=== PATIENT | male | born 1960 | race Caucasian/White ===

== ENCOUNTER 2022-01-26 20:10 | Inpatient (IN) | payer BC ==
[2022-01-26] MEDS ORDERED: ONDANSETRON 4 MG/2 ML VIAL IVP STA (22:31)
[2022-01-26] MEDS ORDERED: SODIUM CHLORIDE 0.9% 1,000 ML IV STA ×2 (22:31)
[2022-01-26] MEDS ORDERED: MORPHINE SULFATE 4 MG/ML SYRINGE IV STA (22:31)
[2022-01-26] MEDS ORDERED: NALOXONE 0.4 MG/ML 1 ML VIAL IV PRN (22:31)
[2022-01-26] MEDS ORDERED: MORPHINE SULFATE 4 MG/ML SYRINGE IVP STA (22:31)
[2022-01-26] MEDS ORDERED: ARTIFICIAL TEARS-HYPROMELLOSE DROPS 15 ML BTL RIGHT EYE PRN (22:31)
[2022-01-26] MEDS ORDERED: DEXAMETHASONE SOD PHOSPHATE 10 MG/ML 1 ML VIAL IVP STA (22:31)
--- NOTE | 2022-01-26 22:47 | ED ---
Eye Problem HPI - General Chief complaint: Skin/Abscess/Foreign Body Stated complaint: shingles Time Seen by Provider: 01/26/22 21:55 Source: patient, family, RN notes reviewed, old records reviewed Mode of arrival: ambulatory Limitations: no limitations - History of Present Illness Initial comments: This is a 61-year-old male to the emergency department for evaluation patient Dese for evaluation regards to prior diagnosis of herpes zoster ophthalmicus. Patient sent in for treatment. Patient is having severe pain of the right eye which is been going on for 4 days. Pain is severe eyes become significantly swollen he believes it all started when he had a scratch to his eye from a tree will use climbing. Patient has no significant medical history otherwise no other complaints MD chief complaint: eye pain, eye redness, other (Right eye rash) -: days(s) (7) Location: right eye Place: home If Injury: direct trauma Eye Symptoms: burning, redness, pain, discharge Severity: severe Severity scale (1-10): 10 If Pain, Quality: sharp, burning Consistency: constant Associated Symptoms: none Treatments Prior to Arrival: none - Related Data Home Medications Medication Instructions Recorded Confirmed Ascorbic Acid/Multivit-Min 1,000 mg PO DAILY 08/08/15 08/08/15 [Emergen-C 1,000 mg Packet] Allergies Allergy/AdvReac Type Severity Reaction Status Date / Time No Known Allergies Allergy Verified 01/26/22 20:24 Review of Systems ROS Statement: Those systems with pertinent positive or pertinent negative responses have been documented in the HPI. ROS Other: All systems not noted in ROS Statement are negative. Past Medical History Past Medical History: No Reported History History of Any Multi-Drug Resistant Organisms: None Reported Additional Past Surgical History / Comment(s): RECTAL ABSESS I AND D - 2 WEEKS AGO Past Psychological History: No Psychological Hx Reported Smoking Status: Never smoker Past Alcohol Use History: None Reported Past Drug Use History: None Reported General Exam Limitations: no limitations General appearance: alert, in no apparent distress Head exam: Present: atraumatic, normocephalic, normal inspection Eye exam: Present: PERRL, EOMI, periorbital swelling, periorbital tenderness, other (Patient does have zoster-like rash vesicular rash and swelling and edema to right eye and right-sided face, right forehead). Absent: normal appearance (eyelid edema), scleral icterus, conjunctival injection ENT exam: Present: normal exam, mucous membranes moist Neck exam: Present: normal inspection. Absent: tenderness, meningismus, lymphadenopathy Respiratory exam: Present: normal lung sounds bilaterally. Absent: respiratory distress, wheezes, rales, rhonchi, stridor Cardiovascular Exam: Present: regular rate, normal rhythm, normal heart sounds. Absent: systolic murmur, diastolic murmur, rubs, gallop, clicks GI/Abdominal exam: Present: soft, normal bowel sounds. Absent: distended, tenderness, guarding, rebound, rigid Extremities exam: Present: normal inspection, full ROM, normal capillary refill. Absent: tenderness, pedal edema, joint swelling, calf tenderness Back exam: Present: normal inspection Neurological exam: Present: alert, oriented X3, CN II-XII intact Psychiatric exam: Present: normal affect, normal mood Skin exam: Present: warm, dry, intact, normal color. Absent: rash Course Vital Signs 01/26/22 20:21 Temperature 98.6 F Pulse Rate 84 Respiratory 22 Rate Blood Pressure 132/82 O2 Sat by Pulse 97 Oximetry - Reevaluation(s) Reevaluation #1: 01/26/22 22:49 Medical record is reviewed Reevaluation #2: 01/26/22 22:50 Patient's pain is improved Reevaluation #3: 01/26/22 22:51 Patient informed results questions have been answered - Consultations Consultation #1: Spoke with FLORES swanson for admission Medical Decision Making - Medical Decision Making 61 male to the ER for evaluation. Patient presents today for evaluation of right eye pain. Herpes zoster comical. Patient will be admitted for pain control IV acyclovir and ophthalmology and infectious disease consultation Disposition Clinical Impression: Herpes zoster ophthalmicus, right eye, Cellulitis Disposition: ADMITTED IP TO THIS HOSP Condition: Good Is patient prescribed a controlled substance at d/c from ED?: No Referrals: Herbert Mckeon MD [Primary Care Provider] - 1-2 days Time of Disposition: 23:10
[2022-01-26] MEDS: ACYCLOVIR 400 MG/10 ML CUP PO SCH (23:17)
[2022-01-26] MEDS: MUPIROCIN 2% OINT 22 GM TUBE TOPICAL SCH (23:17)
[2022-01-26 23:24] LABS: Basophils # (A) 0.1 k/uL (0-0.2); Basophils % (A) 1 %; Eosinophils # (A) 0.2 k/uL (0-0.7); Eosinophils % (A) 3 %; HGB 16.4 gm/dL (13.0-17.5); Lymphocytes # (A) 0.7 k/uL (1.0-4.8); Lymphocytes % (A) 12 %; MCH 29.7 pg (25.0-35.0); MCHC 32.8 g/dL (31.0-37.0); MCV 90.5 fL (80.0-100.0); Mean Platelet Volume 8.2; Monocytes # (A) 0.5 k/uL (0-1.0); Monocytes % (A) 9 %; Neutrophils # (A) 4.1 k/uL (1.3-7.7); Neutrophils % (A) 73 %; Platelet Count 168 k/uL (150-450); RBC 5.52 m/uL (4.30-5.90); RDW 12.8 % (11.5-15.5); WBC 5.7 k/uL (3.8-10.6)
[2022-01-26 23:39] LABS: Albumin 4.9 g/dL (3.5-5.0); Calcium 9.5 mg/dL (8.4-10.2); Phosphorus 4.3 mg/dL (2.5-4.5); Potassium 4.2 mmol/L (3.5-5.1); Total Bilirubin 0.5 mg/dL (0.2-1.3); Total Protein 7.4 g/dL (6.3-8.2)
[2022-01-27] MEDS: MORPHINE SULFATE 4 MG/ML SYRINGE IVP PRN ×4 (03:27→19:52)
[2022-01-27] MEDS: MUPIROCIN 2% OINT 22 GM TUBE TOPICAL SCH ×3 (08:23→21:05)
[2022-01-27] MEDS: ACYCLOVIR 400 MG/10 ML CUP PO SCH (08:42)
[2022-01-27] MEDS ORDERED: ONDANSETRON 4 MG/2 ML VIAL IVP STA (13:46)
[2022-01-27] MEDS ORDERED: ACYCLOVIR SODIUM 1,000 MG in SODIUM CHLORIDE 0.9% 250 ML IVPB SCH (16:00)
[2022-01-27] MEDS: ACYCLOVIR SODIUM 800 MG in SODIUM CHLORIDE 0.9% 250 ML IVPB SCH (16:41)
--- NOTE | 2022-01-27 18:31 | P.HPIM ---
History of Present Illness This is a pleasant 61 years old male with no significant past medical history, he follows up with Dr. Mckeon. Patient presents because of forehead rash. Patient states that is starting hasn't only itching on Friday, Friday he wants to his sales service technician because of his eye symptoms and she found a scratch in his eye and started him on antibiotics and steroids, on he went back to his sales service technician because of the puffiness of his eye and an ALLERGIC reaction to the antibiotic is suspected and antibiotic was discontinued. However still patient did not improve and on a Friday he noticed a rash where his doctor give him antiviral bouts yesterday Friday he noticed more swelling and started developing shooting pain so he talk to his GEOTECHNICAL OPERATING ENGINEER 1 who directed him to the emergency room. Patient has obvious rash in the right forehead and around the eye and the ophthalmic dermatome of the trigeminal nerve, suspicious for her herpez zoster infection as patient and at bedside report vesicles which have ruptured. There is no reported loss of vision or blurriness. No headache or weakness or numbness Patient Vitals looks stable and patient is afebrile. Labs review once showing WBCs of 5.7, rest of the labs are unremarkable. Carbon dioxide 19 and glucose 123. EKG showing sinus rhythm with no significant ST-T changes. Geothermal Operations Engineer and infectious disease team were consulted. Review of Systems Review of systems CONSTITUTIONAL: No fever, no malaise, no fatigue. HEENT: No recent visual problems or hearing problems. Denied any sore throat. CARDIOVASCULAR: No orthopnea, PND, no palpitations, no syncope. PULMONARY: No shortness of breath, no cough, no hemoptysis. GASTROINTESTINAL: No diarrhea, no nausea, no vomiting, no abdominal pain. No rmoactive bowel sounds. NEUROLOGICAL: No headaches, no weakness, no numbness. HEMATOLOGICAL: Denies any bleeding or petechiae. GENITOURINARY: Denies any burning micturition, frequency, or urgency. MUSCULOSKELETAL/RHEUMATOLOGICAL: Denies any joint pain, swelling, or any muscle pain. ENDOCRINE: Denies any polyuria or polydipsia. Past Medical History Past Medical History: No Reported History History of Any Multi-Drug Resistant Organisms: None Reported Additional Past Surgical History / Comment(s): RECTAL ABSESS I AND D - 2 WEEKS AGO Past Psychological History: No Psychological Hx Reported Smoking Status: Never smoker Past Alcohol Use History: None Reported Past Drug Use History: None Reported Medications and Allergies Home Medications Medication Instructions Recorded Confirmed Type Carboxymethylcellulose Sodium 1 drop BOTH EYES QID PRN 01/27/22 01/27/22 History [Refresh Tears] Allergies Allergy/AdvReac Type Severity Reaction Status Date / Time No Known Allergies Allergy Verified 01/27/22 12:07 Physical Exam Vitals: Vital Signs Temp Pulse Resp BP Pulse Ox 01/27/22 09:53 75 18 98 01/27/22 08:16 97.7 F 73 18 123/75 94 L 01/26/22 20:21 98.6 F 84 22 132/82 97 Intake and Output 01/26/22 01/27/22 01/27/22 22:59 06:59 14:59 Other: Weight 92.986 kg GENERAL: The patient is alert and oriented x3, not in any acute distress. Well developed, well nourished. HEENT: Pupils are round and equally reacting to light. EOMI. No scleral icterus. No conjunctival pallor. Normocephalic, atraumatic. No pharyngeal erythema. No thyromegaly. CARDIOVASCULAR: S1 and S2 present. No murmurs, rubs, or gallops. PULMONARY: Chest is clear to auscultation, no wheezing or crackles. ABDOMEN: Soft, nontender, nondistended, normoactive bowel sounds. No palpable organomegaly. MUSCULOSKELETAL: No joint swelling or deformity. EXTREMITIES: No cyanosis, clubbing, or pedal edema. NEUROLOGICAL: Gross neurological examination did not reveal any focal deficits. -SKIN: no petechiae. Rash at the right forehead and follows the dermatome of the ophthalmic division of the trigeminal nerve. With no blurred vision or decrease in equity. There is evidence of few ruptured vesicles up in the lateral forehead. Also there is involvement of the tip of the nose. There is a swelling and conjunctivitis of the right eyelids. Results CBC & Chem 7: 01/26/22 23:07 01/26/22 23:07 Labs: Abnormal Lab Results - Last 24 Hours (Table) 01/26/22 01/26/22 Range/Units 23:07 23:07 Lymphocytes # 0.7 L (1.0-4.8) k/uL Carbon Dioxide 19 L (22-30) mmol/L Glucose 123 H (74-99) mg/dL Assessment and Plan Assessment: Highly suspicious for right side herpes zoster ophthalmicus, with suspected superimposed bacterial cellulitis. Already failed outpatient treatment Obesity with BMI of 30.3. Plan: This is a pleasant 61 years old male who presents with a rash with pain on the right side of the upper face of the distribution of the ophthalmic division Continue with antibiotic, currently cycle over and cefazolin per ID team recommendation Infectious disease team on the case Geothermal Operations Engineer has been consulted Labs and medication were reviewed.. Continue with symptomatic treatment. Monitor lytes and vitals. DVT and GI prophylaxis. Further recommendations as per clinical course of the patient DVT prophylaxis: Continue with SCD, low risk as patient is mobile GI Prophylaxis: Pepcid Prognosis is guarded
[2022-01-27] MEDS: FAMOTIDINE 20 MG/2 ML VIAL IV SCH (21:04)
--- NOTE | 2022-01-27 23:04 | P.CONS ---
History of Present Illness - Reason for Consult Consult date: 01/27/22 - History of Present Illness Patient is a 61-year-old male presenting to the ER for evaluation of the right side facial rash and redness patient mentioned his symptoms started on but they have noticed to having development of a vesicular rash on the right side of the face involving the periorbital area patient apparently was diagnosed with the herpes zoster ophthalmicus because it was started on acyclo vir however the next day the patient noticed to have increasing swelling redness and pain involving the right side of the face around the right eye patient described the pain to be more of a burning in nature intensity is almost 7-8 out of 10 no radiation with associated swelling and redness to the point that he was unable to open his eye with the symptoms the patient presented to hospital on arrival to the ER the patient was afebrile and no fever have been recorded subsequently patient had a normal white count kidney function and normal liver exams are normal patient was started on acyclovir and ceftriaxone infectious disease was consulted for further management of antibiotic therapy Past Medical History Past Medical History: No Reported History History of Any Multi-Drug Resistant Organisms: None Reported Additional Past Surgical History / Comment(s): RECTAL ABSESS I AND D - 2 WEEKS AGO Past Psychological History: No Psychological Hx Reported Smoking Status: Never smoker Past Alcohol Use History: None Reported Past Drug Use History: None Reported Medications and Allergies Home Medications Medication Instructions Recorded Confirmed Type Carboxymethylcellulose Sodium 1 drop BOTH EYES QID PRN 01/27/22 01/27/22 History [Refresh Tears] Allergies Allergy/AdvReac Type Severity Reaction Status Date / Time No Known Allergies Allergy Verified 01/27/22 12:07 Physical Exam Vitals: Vital Signs Temp Pulse Resp BP Pulse Ox 01/27/22 13:40 83 18 127/76 93 L 01/27/22 12:00 76 18 99 01/27/22 09:53 75 18 98 01/27/22 08:16 97.7 F 73 18 123/75 94 L 01/26/22 20:21 98.6 F 84 22 132/82 97 Intake and Output 01/26/22 01/27/22 01/27/22 22:59 06:59 14:59 Other: Weight 92.986 kg Results CBC & Chem 7: 01/26/22 23:07 01/26/22 23:07 Labs: Abnormal Lab Results - Last 24 Hours (Table) 01/26/22 01/26/22 Range/Units 23:07 23:07 Lymphocytes # 0.7 L (1.0-4.8) k/uL Carbon Dioxide 19 L (22-30) mmol/L Glucose 123 H (74-99) mg/dL Assessment and Plan Plan: 1patient presented to hospital with right sided facial and periorbital area swelling and redness likely secondary to herpes zoster ophthalmicus and concern for possible secondary cellulitis in view of the extensive swelling and redness likely from gram-positive skin elena. 2discontinue oral acyclovir and Rocephin. 3we will start the patient on acyclovir 10 mg/kg every 8 hours IV. 4cefazolin 2 g every 8 hours for the cellulitis. We will follow on clinical condition and cultures to further adjust medication if needed Thank you for this consultation will follow this patient along with you Time with Patient: Greater than 30
--- NOTE | 2022-01-27 23:15 | CONS ---
CONSULTATION HISTORY: This is a 61-year-old white male, who states that earlier last week he was experiencing pain in his right eye. The patient was seen by a local corporate travel coordinator, who prescribed steroids and antibiotic drops for a presumed corneal abrasion. The patient states that the pain initially felt better, however, as the week went on, he began experiencing blisters in the right side of his periorbital region. The patient saw that the blisters increased and were present along with swelling of the skin and redness to the right periorbital region. He presented to the emergency room complaining of severe pain in the right side of his head specially around the eye along with multiple blisters. PHYSICAL EXAMINATION: Visual acuity measured 20/40 right eye and 20/30 left eye. Pupils were equal and reactive to light. Extraocular movements were full in all gaze positions. On penlight exam, there were multiple pustules that were crusted over in the right periorbital region. The conjunctiva exhibited mild injection of the right side. The left side appeared normal. The right cornea was clear. The anterior chambers were deep and the remainder of the ophthalmic exam was otherwise unremarkable. DIAGNOSIS: Herpes Zoster ophthalmicus, right side. The patient is currently receiving IV antivirals and reports of feeling improvement of his pain over the last 12 hours. I asked that he also begin using topical antiviral drops, Zirgan 5 times per day for treatment of herpes keratitis. The patient will begin using these and I asked that he follow up in my office upon discharge. MMRORYL / ERICAN: [id number] / MTDD
[2022-01-28] MEDS: MORPHINE SULFATE 4 MG/ML SYRINGE IVP PRN ×3 (00:17→09:52)
[2022-01-28] MEDS: ACYCLOVIR SODIUM 800 MG in SODIUM CHLORIDE 0.9% 250 ML IVPB SCH ×4 (01:00→23:43)
[2022-01-28] MEDS: MUPIROCIN 2% OINT 22 GM TUBE TOPICAL SCH ×3 (09:44→23:43)
[2022-01-28] MEDS: FAMOTIDINE 20 MG/2 ML VIAL IV SCH ×2 (09:44→20:11)
[2022-01-28 10:29] LABS: Basophils # (A) 0.03 X 10*3/uL (0.00-0.10); Basophils % (A) 0.5 %; Eosinophils # (A) 0.05 X 10*3/uL (0.04-0.35); Eosinophils % (A) 0.8 %; HCT 40.6 % (39.6-50.0); HGB 13.7 g/dL (13.0-17.0); Immature Grans, Automated 0.3 %; Lymphocytes # (A) 1.79 X 10*3/uL (0.90-5.00); Lymphocytes % (A) 29.6 %; MCHC 33.7 g/dL (32.0-37.0); Mean Platelet Volume 10.7 fL (9.5-12.2); Monocytes # (A) 0.67 X 10*3/uL (0.20-1.00); Monocytes % (A) 11.1 %; NRBC Per 100 WBC 0 /100 WBCS (0.0-0.0); Neutrophils # (A) 3.48 X 10*3/uL (1.80-7.70); Neutrophils % (A) 57.7 %; Platelet Count 183 X 10*3/uL (140-440); RBC 4.56 X 10*6/uL (4.40-5.60); RDW 13.1 % (11.5-14.5); WBC 6.04 X 10*3/uL (4.50-10.00)
[2022-01-28 10:50] LABS: ALT 29 U/L (10-49); AST 19 U/L (14-35); African American GFR (CKD) 75.2 (60.0-200.0); Albumin/Globulin Ratio 2.22 (1.60-3.17); Alkaline Phosphatase 45 U/L (41-126); BUN/Creat Ratio 11.25 Ratio (12.00-20.00); Bilirubin, Conjugated <0.20 mg/dL (0.20-0.40); Blood Urea Nitrogen 13.5 mg/dL (9.0-27.0); Calcium 8.8 mg/dL (8.7-10.3); Carbon Dioxide 24.8 mmol/L (20.0-27.5); Chloride 104 mmol/L (96-109); Globulin 1.8 g/dL (1.6-3.3); Glucose 134 mg/dL (70-110); Non-African American GFR(CKD) 64.9 (60.0-200.0); Potassium 3.7 mmol/L (3.5-5.5); Sodium 140 mmol/L (135-145); Total Bilirubin <0.15 mg/dL (0.30-1.20); Total Protein 5.8 g/dL (6.2-8.2)
[2022-01-28] MEDS ORDERED: MD COMMUNICATION TO PHARMACY 1 EACH MISC PO SCH (11:00)
[2022-01-28] MEDS ORDERED: ZIRGAN RIGHT EYE SCH (11:00)
[2022-01-28] MEDS: ACETAMINOPHEN TAB 325 MG TAB PO PRN (15:07)
[2022-01-28] MEDS: ZIRGAN 0.15% RIGHT EYE SCH ×3 (15:49→23:43)
[2022-01-29] MEDS: ACETAMINOPHEN TAB 325 MG TAB PO PRN ×2 (00:08→09:14)
[2022-01-29 02:50] VITALS: TEMP 97.8
[2022-01-29] MEDS: ZIRGAN 0.15% RIGHT EYE SCH ×2 (05:35→12:39)
[2022-01-29 07:48] VITALS: BP 147/89; PULSE 70; RESP 18
[2022-01-29] MEDS: MUPIROCIN 2% OINT 22 GM TUBE TOPICAL SCH (07:50)
[2022-01-29] MEDS: FAMOTIDINE 20 MG/2 ML VIAL IV SCH (07:50)
[2022-01-29] MEDS: ACYCLOVIR SODIUM 800 MG in SODIUM CHLORIDE 0.9% 250 ML IVPB SCH (07:50)
--- NOTE | 2022-01-29 08:32 | P.PN ---
Subjective Progress Note Date: 01/28/22 He is feeling significantly improved today, no longer having eye pain or pain with eye movement. Still complains of redness and tenderness across the R eye and face. No fever, chills. Objective - Vital Signs Vital signs: Vital Signs Temp 97.8 F 01/29/22 07:45 Pulse 70 01/29/22 07:45 Resp 18 01/29/22 07:45 BP 147/89 01/29/22 07:45 Pulse Ox 96 01/29/22 07:45 FiO2 Intake & Output 01/28/22 01/29/22 01/29/22 18:59 06:59 18:59 Intake Total 730 Output Total 1 Balance -1 730 Intake: Intake, IV Titration 250 Amount Acyclovir Sodium 800 mg 250 In Sodium Chloride 0.9% 250 ml @ 270 mls/hr IVPB Q8HR [facility] Rx#:[id number] Oral 480 Output: Stool 1 Other: # Voids 6 1 - Exam Gen: well developed, well nourished, NAD CV: RRR, no murmur Lungs: Normal effort, clear throughout Skin: Crusted vesicles to face, surrounding erythema. No induration. Minimal tenderness - Labs CBC & Chem 7: 01/28/22 06:34 01/28/22 06:34 Labs: Abnormal Lab Results - Last 24 Hours (Table) 01/28/22 01/28/22 Range/Units 06:34 06:34 BUN/Creatinine Ratio 11.25 L (12.00-20.00) Ratio Glucose 134 H (70-110) mg/dL Total Bilirubin <0.15 L (0.30-1.20) mg/dL Conjugated Bilirubin <0.20 L (0.20-0.40) mg/dL Total Protein 5.8 L (6.2-8.2) g/dL Procalcitonin 0.17 H (0.02-0.09) ng/mL Microbiology - Last 24 Hours (Table) 01/26/22 22:50 Blood Culture - Preliminary Blood No Growth after 48 hours Assessment and Plan Plan: Continue with IV acyclovir and cefazolin. ID following. Recommend shingrix 6 weeks after discharge
--- NOTE | 2022-01-29 12:39 | P.PN ---
Subjective Progress Note Date: 01/28/22 Principal diagnosis: Right heart herpes zoster ophthalmic and cellulitis Patient is a 61-year-old male presented to the hospital with a right periorbital pain swelling redness has been diagnosed with herpes zoster ophthalmicus and concern for secondary cellulitis. On today's evaluation that is 01/28/2022, the patient denies having any fever or any chills, the patient right periorbital swelling and redness has slightly decreased no new rash denies any nausea or vomiting no abdominal pain or diarrhea Objective - Vital Signs Vital signs: Vital Signs Temp 98.0 F 01/28/22 07:33 Pulse 59 L 01/28/22 08:00 Resp 17 01/28/22 08:00 BP 123/78 01/28/22 07:33 Pulse Ox 96 01/28/22 07:33 FiO2 Intake & Output 01/27/22 01/28/22 01/28/22 18:59 06:59 18:59 Weight 92.986 kg Other: # Voids 3 - Exam GENERAL DESCRIPTION: A middle-age male lying in bed in no distress HEENT: Right periorbital swelling or redness is decreased rashes crusting RESPIRATORY SYSTEM: Unlabored breathing , decreased breath sounds at bases HEART: S1 S2 regular rate and rhythm , ABDOMEN: Soft , no tenderness EXTREMITIES: No edema feet - Labs CBC & Chem 7: 01/28/22 06:34 01/28/22 06:34 Labs: Abnormal Lab Results - Last 24 Hours (Table) 01/28/22 01/28/22 Range/Units 06:34 06:34 BUN/Creatinine Ratio 11.25 L (12.00-20.00) Ratio Glucose 134 H (70-110) mg/dL Total Bilirubin <0.15 L (0.30-1.20) mg/dL Conjugated Bilirubin <0.20 L (0.20-0.40) mg/dL Total Protein 5.8 L (6.2-8.2) g/dL Procalcitonin 0.17 H (0.02-0.09) ng/mL Microbiology - Last 24 Hours (Table) 01/26/22 22:50 Blood Culture - Preliminary Blood No Growth after 24 hours Assessment and Plan (1) Herpes zoster ophthalmicus, right eye Current Visit: Yes Status: Acute Code(s): B02.30 - ZOSTER OCULAR DISEASE, UNSPECIFIED SNOMED Code(s): 12662059 (2) Periorbital cellulitis of right eye Current Visit: Yes Status: Acute Code(s): L03.213 - PERIORBITAL CELLULITIS SNOMED Code(s): 006690684 Plan: 1patient presented to hospital with right sided facial and periorbital area swelling and redness likely secondary to herpes zoster ophthalmicus and concern for possible secondary cellulitis in view of the extensive swelling and redness likely from gram-positive skin elena. 2patient to continue with acyclovir 10 mg/kg every 8 hours IV and cefazolin 2 g every 8 hours for another 24 hour before transitioning to oral antibiotics Time with Patient: Less than 30
--- NOTE | 2022-01-29 12:41 | P.PN ---
Subjective Progress Note Date: 01/29/22 Principal diagnosis: Right heart herpes zoster ophthalmic and cellulitis Patient is a 61-year-old male presented to the hospital with a right periorbital pain swelling redness has been diagnosed with herpes zoster ophthalmicus and concern for secondary cellulitis. On today's evaluation that is 01/29/2022, the patient remains to be afebrile, the patient right periorbital swelling and redness has decreased in intensity, the patient pain has resolved no new rash. Denies any chest pain shortness of breath or cough no abdominal pain no diarrhea feeling better wants to go home Objective - Vital Signs Vital signs: Vital Signs Temp 97.8 F 01/29/22 07:45 Pulse 70 01/29/22 08:00 Resp 18 01/29/22 08:00 BP 147/89 01/29/22 07:45 Pulse Ox 96 01/29/22 07:45 FiO2 Intake & Output 01/28/22 01/29/22 01/29/22 18:59 06:59 18:59 Intake Total 730 Output Total 1 1 Balance -1 730 -1 Intake: Intake, IV Titration 250 Amount Acyclovir Sodium 800 mg 250 In Sodium Chloride 0.9% 250 ml @ 270 mls/hr IVPB Q8HR [facility] Rx#:[id number] Oral 480 Output: Stool 1 1 Other: # Voids 6 1 1 - Exam GENERAL DESCRIPTION: A middle-age male lying in bed in no distress HEENT: Right periorbital swelling or redness is decreased rashes crusting, no new rash RESPIRATORY SYSTEM: Unlabored breathing , clear to auscultation HEART: S1 S2 regular rate and rhythm , ABDOMEN: Soft , no tenderness EXTREMITIES: No edema feet - Labs CBC & Chem 7: 01/28/22 06:34 01/28/22 06:34 Labs: Microbiology - Last 24 Hours (Table) 01/26/22 22:50 Blood Culture - Preliminary Blood No Growth after 48 hours Assessment and Plan (1) Herpes zoster ophthalmicus, right eye Current Visit: Yes Status: Acute Code(s): B02.30 - ZOSTER OCULAR DISEASE, UNSPECIFIED SNOMED Code(s): 55394351 (2) Periorbital cellulitis of right eye Current Visit: Yes Status: Acute Code(s): L03.213 - PERIORBITAL CELLULITIS SNOMED Code(s): 690645577 Plan: 1patient presented to hospital with right sided facial and periorbital area swelling and redness likely secondary to herpes zoster ophthalmicus and concern for possible secondary cellulitis in view of the extensive swelling and redness likely from gram-positive skin elena. 2patient seemed to have her clinical improvement with acyclovir and cefazolin, plan is to finish therapy with oral Valtrex which the patient already has prescription for and will sent a prescription for oral Keflex for the cellulitis and close outpatient follow-up Time with Patient: Less than 30
--- NOTE | 2022-01-29 14:10 | P.DS ---
Providers Date of admission: 01/26/22 22:35 Expected date of discharge: 01/29/22 Attending physician: Herbert Mckeon MD Consults: 01/26/22 22:31 Consult Physician Routine Consulting Provider: Sawyer Elliott Consult Reason/Comments: zosterOptho Do you want consulting provider notified?: Yes Consult Physician Routine Consulting Provider: Heidi Schafer Consult Reason/Comments: cellulitis Do you want consulting provider notified?: Yes Primary care physician: Herbert Mckeon MD Hospital Course: (1) Herpes zoster ophthalmicus, right eye Current Visit: Yes Status: Acute Code(s): B02.30 - ZOSTER OCULAR DISEASE, UNSPECIFIED SNOMED Code(s): 12011208 (2) Periorbital cellulitis of right eye Current Visit: Yes Status: Acute Code(s): L03.213 - PERIORBITAL CELLULITIS SNOMED Code(s): 256811024 Hospital course: This is a pleasant 61-year-old gentleman admitted with herpes zoster ophthalmicus and periorbital cellulitis of right eye. Evaluated by infectious disease, ophthalmology. Treated with IV cefazolin, acyclovir and Zirgan eyedrops. Denies pain-right eye pain subsided. Significant clinical improvement. Please refer to EHR for specific details. Significant clinical improvement. Patient will be discharged home today in a stable condition with guarded prognosis pending final DC recommendations and clearance per infectious disease. Recommend shingrix 6 weeks after discharge. The impression and plan of care has been dictated as directed. : I performed a history and examination of this patient, discussed the same with the dictator. I agree with the dictator's note ,documented as a scribe. Any additional findings or plans will be noted. Patient Condition at Discharge: Stable Plan - Discharge Summary Discharge Rx Participant: No New Discharge Prescriptions: New Famotidine [Pepcid] 20 mg PO BID #28 tablet Cephalexin [Keflex] 500 mg PO Q8HR 7 Days #21 cap Ganciclovir [Zirgan] 1 applic RIGHT EYE 5XD 7 Days #5 gram Mupirocin 2% Oint [Bactroban 2% Oint] 1 applic TOPICAL TID each Acetaminophen Tab [Tylenol] 325 mg PO Q6HR PRN tab PRN Reason: Fever And/ Or Pain Continue Carboxymethylcellulose Sodium [Refresh Tears] 1 drop BOTH EYES QID PRN PRN Reason: DRY EYES Discharge Medication List Carboxymethylcellulose Sodium [Refresh Tears] 1 drop BOTH EYES QID PRN 01/27/22 [History] Ganciclovir [Zirgan] 1 applic RIGHT EYE 5XD 7 Days #5 gram 01/28/22 [Rx] Acetaminophen Tab [Tylenol] 325 mg PO Q6HR PRN tab 01/29/22 [Rx] Cephalexin [Keflex] 500 mg PO Q8HR 7 Days #21 cap 01/29/22 [Rx] Famotidine [Pepcid] 20 mg PO BID #28 tablet 01/29/22 [Rx] Mupirocin 2% Oint [Bactroban 2% Oint] 1 applic TOPICAL TID each 01/29/22 [Rx] Follow up Appointment(s)/Referral(s): Herbert Mckeon MD [Primary Care Provider] - 02/01/22 3:30 pm (At [facility]) Sawyer Elliott MD [STAFF PHYSICIAN] - 02/04/22 9:20 am (at [facility]) Patient Instructions/Handouts: Shingles (DC), Periorbital Cellulitis in Adults (DC) Discharge Disposition: HOME SELF-CARE
== END 2022-01-29 13:10 | disposition home or self-care (01) | DRG 125 ==
LOC: EC 20:10 → 4SSUR 22:35
PROVIDERS: ADMIT Family Medicine; ATTEND Family Medicine
DX: B02.30 Zoster ocular disease, unspecified (principal); L03.213 Periorbital cellulitis; E66.9 Obesity, unspecified; Z68.30 Body mass index [BMI] 30.0-30.9, adult; B96.89 Other specified bacterial agents as the cause of diseases classified elsewhere; B02.33 Zoster keratitis; Z28.310 Unvaccinated for COVID-19
CPT/HCPCS: 80048; 80053; 80076; 83735; 84100; 84145; 85025; 87040; 96365; 96366; 96367; 96375; 96376; 99284

== ENCOUNTER → 2022-04-16 | Outpatient (CLI) | payer BC ==
--- NOTE | 2022-04-16 23:58 | CONS ---
CONSULTATION REASON FOR CONSULTATION: Sleep apnea. HISTORY OF PRESENT ILLNESS: A 61-year-old male patient coming in for re-evaluation regarding obstructive sleep apnea. The patient was diagnosed having DAXA back in 2012 and his disease was moderately severe. The patient had been using an older-generation ResMed F9 series at a pressure of 8 cm of water. His machine has exceeded his motor life span as the patient has been using the same machine for more than 9 years. He is worried that the machine is going to quit on him and is very much interested in updating his CPAP machine. While off the treatment, he snores and he quits breathing and he is symptomatic. However, while on treatment, he sleeps good. He goes to bed around 10 p.m., wakes up 6 a.m. in the morning and he feels refreshed. No snoring while on the CPAP unit. His [place] score is at 4 while on treatment and the patient is currently using Castellon FX medium size nasal pillows. No significant weight gain or weight loss. No coronary artery disease. No angina, no palpitation, no shortness of breath overnight. He drives and he does not fall asleep while driving. PAST MEDICAL HISTORY: Shingles involving the right eye/herpes oticus, obstructive sleep apnea, and acid reflux. SURGICAL HISTORY: Removal of lesions from the vocal cords. DRUG ALLERGIES: Not known. OUTPATIENT MEDICATIONS: None. SOCIAL HISTORY: The patient is a nonsmoker. No history of alcohol. No history of IV drugs. FAMILY HISTORY: None. REVIEW OF SYSTEMS: A 14-point review of system was done. No history of recent weight gain or weight loss. Sleep quality in general is good while on CPAP therapy. No sleepwalking. No sleep talking. No sleep paralysis, no hallucinations. No shortness of breath, chest pain, heartburn, irritability, anxiety, or trouble with memory or concentration while on treatment. PHYSICAL EXAMINATION: VITAL SIGNS: BP is 128/75, pulse 65, respiratory rate 16, temperature 97.3 saturation 98% on room, weight is 202. [place] score is at 4, BMI 31, neck size 17, weight is 202. GENERAL APPEARANCE: Calm, comfortable. HEENT: Head is atraumatic, normocephalic. NECK: Supple. No JVD. No goiter neck mass Mallampati class 4. LUNGS: Diminished, otherwise clear. HEART: Sounds regular rhythm, normal S1, S2. ABDOMEN: Soft, nontender, No organomegaly. EXTREMITIES: No edema no cyanosis or clubbing. NEUROLOGIC: Awake and alert. There are no focal neurological deficits. PSYCHIATRIC: Negative for anxiety or depression. IMPRESSION: 1. Symptomatic obstructive sleep apnea, coming in for re-evaluation. The patient has been successfully treated with CPAP pressure of 8 cm of water. He is using Castellon FX nasal pillows. His machine is old and the patient is using an older-generation ResMed S9 series given to him back in 2012. 2. Herpes oticus involving the right eye. 3. History of reflux. PLAN: 1. Proceed with a home sleep study to reestablish diagnosis. 2. Once diagnosis is established, we will proceed with ordering the patient a new generation ResMed met 11 unit. We will keep the same mask interface. We will continue to follow. JORDI / ERICAN: [id number] /
== END ==
LOC: SLEEP 14:08
PROVIDERS: ATTEND Internal Medicine Critical Care Medicine
DX: G47.33 Obstructive sleep apnea (adult) (pediatric) (principal); Z99.89 Dependence on other enabling machines and devices; B02.8 Zoster with other complications; Z87.19 Personal history of other diseases of the digestive system
CPT/HCPCS: 99211

== ENCOUNTER → 2022-08-06 | Outpatient (CLI) | payer BC ==
--- NOTE | 2022-08-06 16:34 | P.PN ---
Progress Note - Text Progress Note Date: 08/06/22 On today's evaluation of 08/06/2022, the patient is coming in for a compliance check regarding his obstructive sleep apnea. The patient was reestablished having obstructive sleep apnea. The patient had a home sleep study and he was found to have moderately severe disease with an AHI of 19. Subsequently, the patient was given a newer generation ResMed 11 which is an APAP unit set at a pressures of 4/10 cm of water. The patient is currently using the machine without any major issues. His benefiting from the treatment. No hypersomnia or sleepiness during the day. Based on a 30 day compliancy and data that has been collected between 07/07/2022 and 08/05/2022, the patient has a compliancy of 100%, compliancy for more than 4 hours usage of 100%, average uses of 9 hours and 11 minutes, AHI is down to 0.4, leak is in order of 5 L/m, average pressure delivered by the machines around 8.7 cm of water. He is not using any humidity. The patient is doing well. No weight gain. No angina. No palpitations. No other complaints otherwise for now BP is 119/76 with a pulse of 71 and the respiration of 16 and a temperature 97.9 and his Butner score is at 8. Saturations 98% on room air oxygen Weight is 205 pounds The patient appeared well nourished and normally developed. Vital signs as documented. Head exam is unremarkable. No scleral icterus or corneal arcus noted. Neck is without jugular venous distension, thyromegaly, or carotid bruits. Carotid upstrokes are brisk bilaterally. Lungs are clear to auscultation and percussion. Cardiac exam reveals the PMI to be normally sized and situated. Rhythm is regular. First and second heart sounds normal. No murmurs, rubs or gallops. Abdominal exam reveals normal bowel sounds, no masses, no organomegaly and no aortic enlargement. Extremities are nonedematous and both femoral and pedal pulses are normal.Examination of the skin revealed no evidence of significant rashes, suspicious appearing nevi or other concerning lesions.Neurologically, the patient is awake and alert and the patient does not have any focal neurological deficit. Cranial nerves are essentially intact. Assessment Obstructive sleep apnea moderate in severity with an AHI of 19. The patient is undergoing successful CPAP therapy. Chronic hypersomnia, recovered History of reflux History of HERPES/SHINGLES involving the eyes. Plan Patient is extremely compliant and the patient is benefiting from the treatment. Compliance data was checked. The patient needs insurance status for compliancy. Continue same pressure setting. EPR was activated at a level of 3. The patient will be kept on the same mask interface and the patient will see him back in a year's time and follow-up earlier if needed.
== END ==
LOC: SLEEP 15:44
PROVIDERS: ATTEND Internal Medicine Critical Care Medicine
DX: G47.33 Obstructive sleep apnea (adult) (pediatric) (principal); Z99.89 Dependence on other enabling machines and devices
CPT/HCPCS: 99212

== ENCOUNTER → 2024-08-10 | Outpatient (CLI) | payer OTHER | END | disposition home or self-care (01) | LOC: LABPAT 14:34 | PROVIDERS: ATTEND Surgery | DX: Z01.818 Encounter for other preprocedural examination (principal); Z53.9 Procedure and treatment not carried out, unspecified reason ==